=== PATIENT | female | born 1970 | race Caucasian/White ===

== ENCOUNTER 2024-09-22 13:17 | Emergency (ER) | payer SELFPAY ==
[~2024-09-22] VITALS: Ht 157.5 cm; Wt 81.6 kg
[2024-09-22 13:32] VITALS: PULSE 88; RESP 17; TEMP 98.7; O2SAT 98
== END 2024-09-22 14:10 | disposition home or self-care (01) ==
LOC: ER 13:39
DX: R05.9 Cough, unspecified (principal); B34.9 Viral infection, unspecified; R09.89 Other specified symptoms and signs involving the circulatory and respiratory systems; I10 Essential (primary) hypertension; J45.909 Unspecified asthma, uncomplicated
CPT/HCPCS: 99282